=== PATIENT | female | born 1975 | race African-American/Black ===

== ENCOUNTER 2018-03-29 20:23 | Emergency (ER) | payer MEDICARE, MEDICAID ==
[~2018-03-29] VITALS: Ht 175.3 cm; Wt 104.3 kg
[~2018-03-29 20:23] MED LIST: AMOXICILLIN500 MG ORAL; CIPRO500 MG PO; IBUPROFEN600 MG ORAL; IBUPROFEN600 MG PO; NORCO 5-325 TA1 EACH ORAL; PHENAZOPYRIDIN200 MG PO; VICODIN 5-5001 EACH PO
--- NOTE | 2018-03-29 21:49 | Diagnostic Imaging Report ---
EXAM: XR Right Toe(s), 3 Views CLINICAL HISTORY: PAIN TECHNIQUE: Frontal, lateral and oblique views of the first toe of the right foot. COMPARISON: No relevant prior studies available. FINDINGS: Bones/joints: No definite plain film evidence for fracture of the right first toe. No dislocation. Soft tissues: Unremarkable. IMPRESSION: No definite plain film evidence for fracture of the right first toe.
--- NOTE | 2018-03-29 22:01 | Emergency Room Report ---
History of Present Illness General Chief Complaint: Lower Extremity Injury Source: Patient Present Illness HPI Patient is a 42-year-old female who is presenting after [place]. The patient has very long toenails and they often get lifted. Patient is complaining of pain. Apparently was [place] well [place] the beach and the fire services plumber wrapped it and told patient to present to the emergency department. Allergies: Coded Allergies: No Known Allergies (Unverified , 09/07/12) Patient History Past Medical History: none Past Surgical History: none Social History: Denies: alcohol use, drug use Last Menstrual Period: February Nursing Documentation-PMH Hx Neurological Problems: Yes - CHRONIC BACK PROBLEMS Review of Systems Constitutional: Denies: no symptoms, see HPI, chills, sweats, fever, malaise, weakness, other Musculoskeletal: Reports: see HPI Skin: Denies: no symptoms, see HPI, rash, change in color, change in hair/nails , dryness, lesions, other Physical Exam Vital Signs Date Time Temp Pulse Resp B/P (MAP) Pulse Ox O2 Delivery O2 Flow Rate FiO2 03/29/18 20:27 98.0 76 18 143/85 96 Room Air 98.1 Sp02 EP Interpretation: reviewed, normal General Appearance: normal inspection Musculoskeletal: normal inspection, other - Right great toe nail partially avulsed but stable at the nail bed Skin: normal inspection, normal color, no rash Medical Decision Making ER Course Patient is a 42-year-old female whose nail was lifted after being stepped on. X -rays were taken to rule out fracture and there is none. The patient elected to leave the nail in its location and act as a biological dressing. There is no active bleeding at this time. The nail was stabilized with gauze and tape and the patient instructed on how to change this over the next several days. She will take Tylenol or Motrin at home for pain. Last Vital Signs Date Time Temp Pulse Resp B/P (MAP) Pulse Ox O2 Delivery O2 Flow Rate FiO2 03/29/18 20:27 98.0 76 18 143/85 96 Room Air 98.1 Disposition: HOME, SELF-CARE Condition: Stable Patient Instructions: Nail Avulsion Jordin Hatfield MD Mar 29, 2018 22:01
[2018-03-29 22:09] VITALS: BP 144/86
[2018-03-29 22:11] VITALS: BP 144/86
== END 2018-03-29 22:11 | disposition home or self-care (01) ==
LOC: EMR 22:10
DX: S91.201A Unspecified open wound of right great toe with damage to nail, initial encounter (principal); W51.XXXA Accidental striking against or bumped into by another person, initial encounter; Y92.832 Beach as the place of occurrence of the external cause
CPT/HCPCS: 99283

== ENCOUNTER 2019-08-08 08:17 | Emergency (ER) | payer MEDICARE, MEDICAID ==
[~2019-08-08] VITALS: Ht 175.3 cm; Wt 104.3 kg
--- NOTE | 2019-08-08 08:25 | NUR ---
ED Nurse Note: A/Ox4. Pt reports of having sorethroat since last night, hard to swallow with chills. Denies fever. NAD noted.
[2019-08-08] MEDS ORDERED: AMOXICILLIN500 MG ORAL (08:34)
[2019-08-08] MEDS ORDERED: IBUPROFEN600 MG ORAL (08:34)
[2019-08-08 08:38] VITALS: BP 136/87
--- NOTE | 2019-08-08 08:39 | Emergency Room Report ---
History of Present Illness General Chief Complaint: Sore Throat Source: Patient Present Illness HPI Patient presents with complaints of sore throat pain with swallowing reports that her symptoms started yesterday Patient was gargling with warm apple cider last night she felt that this improved her symptoms somewhat however She felt weak and with a sore throat this morning she presents to the ER denies any posterior neck pain or photophobia denies any chest pain or shortness of breath patient has a mild runny nose denies any other rash abdominal pain or fevers Allergies: Coded Allergies: No Known Allergies (Unverified , 08/08/19) Patient History Past Medical History: see triage record Last Menstrual Period: Jul 2019 Reviewed Nursing Documentation: PMH: Agreed; PSxH: Agreed Nursing Documentation-PMH Past Medical History: No History, Except For Hx Neurological Problems: Yes - CHRONIC BACK PROBLEMS Review of Systems All Other Systems: negative except mentioned in HPI Physical Exam Vital Signs Date Time Temp Pulse Resp B/P (MAP) Pulse Ox O2 Delivery O2 Flow Rate FiO2 08/08/19 08:25 99.7 69 18 136/87 (103) 98 Room Air Sp02 EP Interpretation: reviewed, normal General Appearance: well appearing, no apparent distress Head: normocephalic, atraumatic Eyes: bilateral eye PERRL, bilateral eye EOMI ENT: other - Left-sided pharyngeal erythema, uvula midline voice is normal Neck: full range of motion, supple Respiratory: lungs clear, no respiratory distress Cardiovascular #1: regular rate, rhythm Gastrointestinal: non tender, soft Genitourinary: no CVA tenderness Musculoskeletal: normal inspection Neurologic: alert, oriented x3 Psychiatric: normal inspection Skin: no rash Lymphatic: normal inspection Medical Decision Making Diagnostic Impression: Primary Impression: pharyngitis ER Course Given the history and presentation multiple differentials included but not limited to, pharyngitis, retropharyngeal abscess, peritonsillar abscess entertained The exam and findings are more consistent with pharyngitis at this time patient will have initial conservative Outpatient attempt and return with any changes or concerns Last Vital Signs Date Time Temp Pulse Resp B/P (MAP) Pulse Ox O2 Delivery O2 Flow Rate FiO2 08/08/19 08:25 99.7 69 18 136/87 (103) 98 Room Air Status: unchanged Disposition: HOME, SELF-CARE Condition: Improved Scripts Ibuprofen* (MOTRIN*) 600 Mg Tablet 600 MG ORAL Q8H PRN for For Pain, #20 TAB 0 Refills Prov: Reji Álvarez DO 08/08/19 Amoxicillin* (AMOXIL*) 500 Mg Capsule 500 MG ORAL THREE TIMES A DAY, #21 CAP Prov: Reji Álvarez DO 08/08/19 Referrals: [facility] Patient Instructions: Pharyngitis, [id number] Additional Instructions: Patient is provided with the discharge instructions notified to follow up with primary doctor in the next 2-3 days otherwise return to the er with any worsening symptoms. Please note that this report is being documented using [email or web address] technology. This can lead to erroneous entry secondary to incorrect interpretation by the dictating instrument. Reji Álvarez DO Aug 08, 2019 08:39
[2019-08-08 08:41] VITALS: BP 136/87
--- NOTE | 2019-08-08 08:42 | NUR ---
ED Nurse Note: Pt cleared by health care Provider for discharge. DC instructions/prescription was given and explained to pt and verbalized understanding of teachings. All medical deviecs such as ID band removed. Pt is AAO x4, ambulatory and left with all personal belongings.
== END 2019-08-08 08:43 | disposition home or self-care (01) ==
LOC: EMR 08:39
DX: J02.9 Acute pharyngitis, unspecified (principal)
CPT/HCPCS: 99282